=== PATIENT | female | born 1965 | race Caucasian/White ===

== ENCOUNTER 2017-02-01 18:42 | Emergency (ER) | payer OTHER ==
[2017-02-01 18:48] VITALS: BP 145/83; BMI 27.6
--- NOTE | 2017-02-01 20:36 | DR.HEADACH ---
HPI - Time Seen Time seen: 20:33 - Primary Care Physician Primary Care Physician: DEAN - Complaint/Symptoms Chief Complaint:: HEADACHE Self Treatment fo Chief Complaint: EXCEDRIN AND PRESCRIBED NARCOTICS - Reviewed Nurses Notes Reviewed: Yes - Source History Provided: Patient - Mode of Arrival Mode of Arrival: Ambulatory - Timing Onset of Chief Complaint: 01/22/17 - Duration Since Onset: Intermittent Duration: Days - Location Headache Location: Generalized - Quality Quality: Aching - Severity Headache Severity: Moderate, Like Previous Headaches - Context Headache Onset Circumstances: Spontaneous. denies: Febrile Illness, Trauma History of: None Known headache disorder (dx):: MIGRAINES Prior Work Up: CT - Modifying Factors Improves With: Other Worsens: Light - Associated Signs and Symptoms Associated Symptoms: Photophobia PMH - PMH Past Medical History: Yes Past Medical History: Angina, Coronary Artery Disease, Diabetes, Dyslipidemia, Headaches Past Surgical History: Yes Surgical History: Angioplasty/Stents, , CABG/Valve Surgery, Cholecystectomy, Hysterectomy, Joint Replacement, Ortho Surgery - Family History History of Family Medical Conditions: Yes Family Medical History: Diabetes Mellitus, Cancer, [place], Coronary Artery Disease, Heart Failure, Hypertension - Social History Type of Tobacco Use: None Alcohol Use: None Do you use any recreational Drugs:: No Lives With: Spouse Lives Where: Home - infectious screening Have you traveled outside the country in the last 6 months?: No Isolation: Standard ROS - Review of Systems Constitutional: No Symptoms Reported Eyes: Photophobia ENTM: No Symptoms Reported Respiratoy: No Symptoms Reported Cardiovascular: No Symptoms Reported Gastrointestinal/Abdominal: Nausea Genitourinary: No Symptoms Reported Neurological: Headache Musculoskeletal: No Symptoms Reported Integumentary: No Symptoms Reported Hematologic/Lymphatic: No Symptoms Reported Endocrine: No Symptoms Reported Psychiatric: No Symptoms Reported PE - Vital Signs Vitals: Temperature 98.4 F Pulse Rate 100 Respiratory Rate 16 Blood Pressure [Left Arm] 146/86 Blood Pressure [Right Arm] 138/64 Blood Pressure 145/83 O2 Sat by Pulse Oximetry 97 - General Limitations: No Limitations General Appearance: Alert, In No Apparent Distress - Head Head Exam: Normal Inspection - Eyes Eye exam: EOMI. negative: Scleral Icterus, Conjunctival Injection Eyelids: Normal Inspection: Bilateral Pupils: Regular, Round: Bilateral - ENT ENT Exam: Normal Exam External Ear Exam: Normal External Inspection - Neck Neck Exam: Normal Inspection, Full ROM, Trachea Midline - Respiratory Respiratory Exam: negative: Accessory Muscle Use, Respiratory Distress - Extremities Extremities Exam: Normal Inspection, Full ROM - Neurologic Neurological Exam: Alert, Oriented X3, CN II-XII Intact - Psychiatric Psychiatric Exam: Flat Affect - Skin Skin Exam: Intact, Normal Color - Diagnosis Discharge Problem: Headache Qualifiers: Headache type: unspecified Headache chronicity pattern: acute headache Intractability: not intractable Qualified Code(s): R51 - Headache - Discharge Plan Condition: Stable - Follow ups/Referrals Follow ups/Referrals: GUY MORAN [Primary Care Provider] - 3 days - Instructions
[2017-02-01] MEDS ORDERED: TORADOL 60 MG VIAL ONE (20:43)
[2017-02-01] MEDS ORDERED: TORADOL 60 MG VIAL IM ONE (20:44)
== END 2017-02-01 21:00 | disposition home or self-care (01) ==
LOC: ER 18:52
DX: R51 Headache (principal)
CPT/HCPCS: 96372; 99282; J1885

== ENCOUNTER 2023-05-25 07:30 | Observation (INO) ==
[2023-05-25 07:11] VITALS: BMI 29.6
[2023-05-25] MEDS: NovoLIN R (or HumuLIN R) SUBCUT PRN ×2 (07:15→15:51)
[~2023-05-25 07:30] MED LIST: ANCEF VIAL 1 GRAM ONE; BYFAVO INJ IVP ONE; MARCAINE 0.25% INJ ONE; NAROPIN 0.75% EPI ONE; NS 1,000 ML IV 1,000 ML ONE; NS 100 ML IV 100 ML ONE; NovoLIN R (or HumuLIN R) ONE; TOBRAMYCIN SULFATE ONE; VANCOMYCIN HCL ONE
[2023-05-25] MEDS ORDERED: ULTANE GAS IN ONE (07:54)
[2023-05-25] MEDS ORDERED: DIPRIVAN VIAL 20 ML ONE (07:55)
[2023-05-25] MEDS ORDERED: OFIRMEV IV 1000 MG VIAL 1,000 MG/100 ML VIAL IV ONE (07:55)
[2023-05-25] MEDS ORDERED: FENTANYL VIAL INJ 100 mcg ONE (07:57)
[2023-05-25] MEDS ORDERED: PEPCID 20 MG VIAL ONE (07:58)
[2023-05-25] MEDS ORDERED: ZOFRAN INJ 4 MG VIAL ONE (07:58)
[2023-05-25] MEDS ORDERED: DECADRON INJ ONE (07:58)
[2023-05-25] MEDS ORDERED: XYLOCAINE 2 % (PLAIN) ONE (08:03)
[2023-05-25] MEDS ORDERED: NEO-SYNEPHRINE INJ ONE (08:26)
[2023-05-25] MEDS ORDERED: TRANSDERM-SCOP TD ONE (08:53)
[2023-05-25] MEDS ORDERED: DILAUDID INJ ONE (09:14)
[2023-05-25] MEDS ORDERED: BRIDION ONE (09:14)
[2023-05-25] MEDS ORDERED: ROBINUL ONE (09:15)
[2023-05-25] MEDS ORDERED: BENADRYL INJ 50 MG VIAL IVP PRN (09:33)
[2023-05-25] MEDS ORDERED: BARHEMSYS INJ IVP PRN (09:33)
[2023-05-25] MEDS ORDERED: DILAUDID INJ IVP PRN (09:33)
[2023-05-25] MEDS ORDERED: TYLENOL 325 MG TAB PO PRN (10:16)
[2023-05-25] MEDS ORDERED: ZOFRAN INJ 4 MG VIAL IVP PRN (10:16)
[2023-05-25] MEDS ORDERED: BARHEMSYS INJ ONE (10:32)
[2023-05-25] MEDS: ROXICODONE TAB 15 MG PO PRN ×2 (12:51→19:00)
[2023-05-25] MEDS ORDERED: ANCEF VIAL 1 GRAM IVP SCH (14:00)
[2023-05-25] MEDS: ANCEF VIAL 1 GRAM 2 G in NS 100 ML IV 100 ML IV SCH ×2 (14:36→21:55)
[2023-05-25] MEDS: ZOFRAN INJ 4 MG VIAL IVP PRN (20:13)
--- NOTE | 2023-05-25 20:21 | RAD ---
HISTORYPOST OP EX FIX OMAR Relevant Clinical InformationJuan Pablo GALLAGHER.FINDINGSThere is orthopedic hardware consistent with a stabilizer overlying the distal tibia and fibula and foot. This limits evaluation of the osseous structures. There is a fixation plate seen overlying the distal lateral fibula held by 8 screws. Good anatomic alignment of the fibular fixation plate is seen. There is chronic erosive changes of the distal tibia with mild lateral dislocation at the tibiotalar joint. Orthopedic cement is seen of the distal tibia at the tibiotalar joint and there is heterotopic bone formation seen along the dorsal and anterior aspect of the distal tibia.IMPRESSIONOrthopedic stabilizer overlying the lower leg hindering bony detailed analysis.Fixation plate held by 8 screws involving the distal fibula.Medial dislocation of the distal tibia as compared with the talar dome at the tibiotalar joint. Probable erosive degenerative changes of the tibiotalar joint with probable orthopedic cement versus severe sclerosis involving the distal tibia.Electronically signed by: Giovanna Whitaker (May 25, 2023 20:19:54)
[2023-05-25] MEDS ORDERED: COLACE CAP 100 MG PO SCH (21:00)
[2023-05-26] MEDS: ROXICODONE TAB 15 MG PO PRN ×2 (01:20→08:17)
[2023-05-26] MEDS: DILAUDID INJ IVP PRN ×2 (03:49→11:22)
[2023-05-26] MEDS: ZOFRAN INJ 4 MG VIAL IVP PRN (03:49)
[2023-05-26 04:25] VITALS: O2SAT 96
[2023-05-26 04:56] VITALS: RESP 18
[2023-05-26] MEDS: ANCEF VIAL 1 GRAM 2 G in NS 100 ML IV 100 ML IV SCH (05:01)
[2023-05-26 05:16] LABS: BLOOD UREA NITROGEN 17 mg/dL (7-18); CARBON DIOXIDE 24.3 mmol/L (21-32); CHLORIDE 100 mmol/L (98-107); COR NA(FOR HYPERGLY) 140 mmol/L (136-145); CREATININE 0.95 mg/dL (0.55-1.02); GLUCOSE 248 mg/dL (65-99); POTASSIUM 3.8 mmol/L (3.5-5.1); SODIUM 136 mmol/L (136-145); eGFR NON BLACK RACES > 60 (>60)
[2023-05-26] MEDS ORDERED: CONSULT PHARMACY - POTASSIUM & MAGNESIUM XX SCH (07:00)
[2023-05-26] MEDS ORDERED: K-DUR TAB 20 MEQ PO SCH (08:00)
--- NOTE | 2023-05-26 08:22 | NOTE.SOAP ---
Soap Note Note for Day of Date of Exam: 05/26/23 Subjective Data Subjective Data: POD1:Patient doing well this am, experiencing nausea from the pain medication and would like Zofran more frequently. Experiencing pain at some of the pin sites. Patient states she is able to transfer to the commode with help and states that physical therapy did not come yesterday. Patient denies any other constitutional symtpoms overnight such as fever, chills, SOB, dizziness or vomiting. Objective Data Objective Data: Deferred- dressing to RLE is c/d/i without strikethrough. Patient able to move toes. Negative calf pain Assessment Assessment: S/P Hardware removal, insertion of antibiotic spacer, bone debridement and application of multiplanar external fixator, Right (DOS: 05/25/23) Infected non union Charcot Arthropathy Plan Plan: Discussed post operative plan at length with patient. Patient to remain WBAT at 50% to the RLE with walker or to transfer to wheelchair. Patient was not seen my physical therapy yesterday, discussed with nurse. Patient is to keep dressing c/d/i until the follow up visit in Dr. Lloyd's office. Patient to take medication prescribed as directed. Patient okay for discharge from Podiatry standpoint once clear per medicine. Please DC with post operative instructions and prescriptions.
[2023-05-26] MEDS ORDERED: ZOFRAN INJ 4 MG VIAL IVP PRN (08:28)
[2023-05-26] MEDS ORDERED: LOVENOX INJ 40 MG SYR SC SCH (09:00)
[2023-05-26 09:15] VITALS: BP 129/61; PULSE 90; TEMP 98.2
== END 2023-05-26 11:54 | disposition home or self-care (01) ==
LOC: MED/SURG → OBS 10:35 → MED/SURG 10:51
PROVIDERS: ADMIT Obstetrics & Gynecology Obstetrics; ATTEND Obstetrics & Gynecology Obstetrics
PROC: APEXFIX (2023-05-25 07:45)

== ENCOUNTER 2023-06-29 09:03 | Observation (INO) ==
[~2023-06-29 09:03] MED LIST changes: -ANCEF VIAL 1 GRAM ONE; -BYFAVO INJ IVP ONE; -MARCAINE 0.25% INJ ONE; -NAROPIN 0.75% EPI ONE; -NS 1,000 ML IV 1,000 ML ONE; -NS 100 ML IV 100 ML ONE; -NovoLIN R (or HumuLIN R) ONE; +SUPRANE ONE; -TOBRAMYCIN SULFATE ONE; -VANCOMYCIN HCL ONE
[2023-06-29] MEDS ORDERED: LR 1,000 ML IV 1,000 ML IV ONE ×2 (09:37→15:55)
[2023-06-29] MEDS ORDERED: NS 100 ML IV 100 ML ONE (09:37)
[2023-06-29] MEDS ORDERED: ANCEF VIAL 1 GRAM ONE (09:37)
[2023-06-29 10:17] VITALS: BMI 30.4
[2023-06-29] MEDS ORDERED: VERSED ONE ×2 (13:19→13:34)
[2023-06-29] MEDS ORDERED: DIPRIVAN VIAL 20 ML ONE (13:20)
[2023-06-29] MEDS ORDERED: REGLAN INJ 10 MG VIAL ONE ×2 (13:20→14:54)
[2023-06-29] MEDS ORDERED: ZEMURON 100 MG VIAL ONE (13:20)
[2023-06-29] MEDS ORDERED: TORADOL 30 MG VIAL ONE (13:20)
[2023-06-29] MEDS ORDERED: PEPCID 20 MG VIAL ONE ×2 (13:20→14:54)
[2023-06-29] MEDS ORDERED: ZOFRAN INJ 4 MG VIAL ONE ×2 (13:20→14:54)
[2023-06-29] MEDS ORDERED: FENTANYL VIAL INJ 100 mcg ONE (13:20)
[2023-06-29] MEDS ORDERED: BRIDION ONE (13:20)
[2023-06-29] MEDS ORDERED: OFIRMEV IV 1000 MG VIAL 1,000 MG/100 ML VIAL IV ONE (13:20)
[2023-06-29] MEDS ORDERED: NAROPIN 0.75% EPI ONE (13:32)
[2023-06-29] MEDS ORDERED: BETADINE SOLN ONE (14:15)
[2023-06-29] MEDS ORDERED: MARCAINE 0.25% INJ ONE (14:15)
[2023-06-29] MEDS ORDERED: BYFAVO INJ IVP ONE (14:24)
[2023-06-29] MEDS ORDERED: NEO-SYNEPHRINE INJ ONE (15:09)
[2023-06-29] MEDS ORDERED: SUPRANE ONE (16:23)
[2023-06-29] MEDS ORDERED: DILAUDID INJ IVP PRN ×2 (17:08→17:18)
[2023-06-29] MEDS ORDERED: TYLENOL 325 MG TAB PO PRN (17:08)
[2023-06-29] MEDS ORDERED: PERCOCET TAB 5/325 MG PO PRN (17:08)
[2023-06-29] MEDS ORDERED: ZOFRAN INJ 4 MG VIAL IVP PRN ×2 (17:08→17:18)
[2023-06-29] MEDS ORDERED: REGLAN INJ 10 MG VIAL IVP PRN (17:18)
[2023-06-29] MEDS ORDERED: BARHEMSYS INJ IVP PRN (17:18)
[2023-06-29] MEDS ORDERED: BENADRYL INJ 50 MG VIAL IVP PRN (17:18)
[2023-06-29] MEDS ORDERED: COLACE CAP 100 MG PO SCH (21:00)
[2023-06-29] MEDS: ANCEF VIAL 1 GRAM IVP SCH (21:23)
[2023-06-30] MEDS ORDERED: PHENERGAN INJ 25 MG IM PRN (05:12)
[2023-06-30] MEDS: ANCEF VIAL 1 GRAM IVP SCH (05:16)
[2023-06-30 06:08] LABS: BASOPHILS % (AUTO) 0.4 % (0.2-1.0); EOSINOPHILS # (AUTO) 0.2 x10^3/uL (0.0-0.2); EOSINOPHILS % (AUTO) 1.8 % (0.9-2.9); HEMATOCRIT 29.7 % (36.0-47.0); HEMOGLOBIN 10.1 g/dL (12.0-16.0); LYMPHOCYTES # (AUTO) 1.4 X10^3/uL (1.3-2.9); LYMPHOCYTES % (AUTO) 15.4 % (21.0-51.0); MEAN CORPUSCULAR HEMOGLOBIN 27.5 pg (27.0-34.0); MEAN CORPUSCULAR HGB CONC 34.1 g/dL (33.0-35.0); MEAN CORPUSCULAR VOLUME 80.8 fL (80.0-100.0); MEAN PLATELET VOLUME 7.3 fL (7.4-11.0); MONOCYTES # (AUTO) 0.8 x10^3/uL (0.3-0.8); MONOCYTES % (AUTO) 8.6 % (0.0-13.0); NEUTROPHILS # (AUTO) 6.7 x10^3/uL (2.2-4.8); NEUTROPHILS % (AUTO) 73.8 % (42.0-75.0); PLATELET COUNT 507 X10^3/uL (150.0-450.0); RED BLOOD COUNT 3.67 X10^6/uL (3.5-5.4); RED CELL DISTRIBUTION WIDTH 15.5 % (11.6-16.5); WHITE BLOOD COUNT 9.1 X10^3/uL (3.6-10.0)
[2023-06-30 06:17] LABS: BLOOD UREA NITROGEN 18 mg/dL (7-18); CALCIUM 8.2 mg/dL (8.5-10.1); CARBON DIOXIDE 25.4 mmol/L (21-32); CHLORIDE 101 mmol/L (98-107); COR NA(FOR HYPERGLY) 136 mmol/L (136-145); CREATININE 1.12 mg/dL (0.55-1.02); GLUCOSE 131 mg/dL (65-99); POTASSIUM 4.2 mmol/L (3.5-5.1); SODIUM 135 mmol/L (136-145); eGFR NON BLACK RACES 53 (>60)
--- NOTE | 2023-06-30 07:58 | NOTE.SOAP ---
Soap Note Note for Day of Date of Exam: 06/30/23 Subjective Data Subjective Data: Patient is POD#1 for hindfoot fusion, patient experiencing nausea and severe 10/10 pain this morning. Patient states that the block wore off, and that she has a history of pain (this is a norm). Patient states that she would be okay going home with PO medication Objective Data Objective Data: Deferred- dressing c/d/i without strikethrough. CFT<3s to all digits and able to move toes Assessment Assessment: S/P Hindfoot fusion with implant (DOS:06/29/23) Charcot Arthropathy Plan Plan: Discussed post op protocol with patient and at bedside in great detail. Patient is to remain NWB to the RLE using crutches or walker or wheelchair. Patient is to take prescriptions as directed. Keep dressing c/d/i until follow up appointment with Dr. Lloyd next week. Patient is to follow up at scheduled appointment or sooner is any problems arise. Patient is okay for discharge from a podiatry standpoint once clear per medicine
[2023-06-30] MEDS ORDERED: LOVENOX INJ 40 MG SYR SC SCH (09:00)
[2023-06-30 09:41] VITALS: BP 127/60; PULSE 99; RESP 20; TEMP 98.8; O2SAT 94
== END 2023-06-30 11:21 | disposition home or self-care (01) ==
LOC: MED/SURG 09:03 → SURG1 09:03
PROVIDERS: ADMIT Obstetrics & Gynecology Obstetrics; ATTEND Obstetrics & Gynecology Obstetrics